=== PATIENT | female | born 1980 | race Caucasian/White ===

== ENCOUNTER 2017-03-20 05:32 | Inpatient (IN) | payer OTHER ==
--- NOTE | 2017-03-19 18:40 | GHP ---
[f rep st] PREOP HISTORY AND PHYSICAL DATE OF ADMISSION: 03/20/2017 She is scheduled for surgery tomorrow, 03/20/2017 at 7:30 a.m. SURGERY TO BE PERFORMED: Repeat lower transverse section. HISTORY OF PRESENT ILLNESS: The patient is a 36-year-old 3, para 1-0-1-1 with a last menstru al period of 06/10/2016, EDC of 03/17/2017, consistent with a 6 week ultrasound. She has had good pr enatal care at [facility] since registration at 6 weeks gestation, and she has progressed t o 40 and 3/7 weeks gestation. She had a history of a with her first baby secondary to radha ch presentation, failed external cephalic version, and she presented in labor with spontaneous ruptur e of membranes. That was an uncomplicated surgery. She wished to attempt to have a vaginal af ter section with this baby, and has hoped to go into spontaneous labor. However, she has no t shown any signs of labor as yet, and her cervix currently is closed, and high, and posterior. She has not had any regular contractions. We discussed the pros and cons of waiting a little while longe r to see if she would go into labor on her own. We will not offer an induction of labor because of t he increased risk of uterine rupture, and she is in agreement with this. So, she has decided to proc eed with the tomorrow. She has had an uncomplicated course, except for history of . She has a history of GBS bacteriuria. She had borderline growth initially with this bab y. Estimated weight was 19th percentile at 20 weeks. Followup ultrasound showed good growth. Most recently, baby was in the 44th percentile at 28 weeks, and has had good fundal height and олег l growth since then. No other risk factors. Normal labs in this , and she h as progressed to 40 weeks. PAST OB HISTORY: In 05/2014, she had a missed and a D and C. In 07/2015, she had the C-sec tion as previously described. This is her third . PAST GYNECOLOGICAL HISTORY: She has a normal menses with menarche at age 13, interval every 25-30 da ys, length of 3-4 days. She was having irregular cycles when she conceived this baby because she was still breast-feeding her older baby. Her LMP was 06/10/2016. She has one history of an abnormal Pa p, had a colpo which was normal. History of a and D and C. no other gynecological problem s. PAST MEDICAL HISTORY: No other significant past medical history. PAST SURGICAL HISTORY: She had an ACL repair x2, primary , wisdom teeth, and D and C. ALLERGIES: She has no known drug allergies. MEDICATIONS: vitamins, DHEA and Bifera. LABS: She is A positive, antibody negative, RPR nonreactive, rubella immune. Hepatitis negative. H IV negative. Cystic fibrosis, SMA, fragile X negative apart. Parvo was immune. Pap normal. Gonorr hea and chlamydia normal. Urine was positive for GBS. Verifi was normal. 1-hour GTT 109. Normal l ab. SOCIAL HISTORY: She is . She lives with her , Tor, and her son. She works in rehab . Denies tobacco, alcohol, and drug use. FAMILY HISTORY: Maternal grandparents had cardiac disease. OBJECTIVE: VITAL SIGNS: Today she is afebrile. Blood pressure is 106/68, weight is 159. She is up 35 pounds in this . GENERAL: She is a well-developed gravid white female, in no acute dis tress. LUNGS: Clear to auscultation bilaterally. HEART: Regular rate and rhythm. No murmur. ABD OMEN: Soft, nontender, nondistended. Normal bowel sounds. Gravid. Fundal height is 40. hea rt tones are 140s. PELVIC EXAM: Fingertip, high, posterior. ASSESSMENT AND PLAN: A 36-year-old 3, para 1-0-1-1 at 40 and 3/7 weeks gestation for a repea t lower transverse section. The patient was consented for the procedure today. She underst ood the risks and benefits. The risks including bleeding, infection, damage to internal organs, uter us, tubes, ovaries, bowel, bladder, nerves, blood vessels, ureters, risk of injury, risk of hem orrhage requiring blood transfusion, hysterectomy, or . She understood these risks and benefits , agreed to proceed. /[id number]/[facility]
[2017-03-20] MEDS ORDERED: CITRIC ACID/SODIUM CITRATE 30 ML UDCUP PO ONE (05:41)
[2017-03-20] MEDS ORDERED: LR 500 ML IV ONE (05:41)
[2017-03-20] MEDS ORDERED: ceFAZolin 2 GM/DEXTROSE 100 ML IV ONE (05:41)
[2017-03-20] MEDS ORDERED: LR 1,000 ML IV SCH (06:00)
[2017-03-20] MEDS ORDERED: MISOPROSTOL 200 MCG TAB ONE (06:35)
[2017-03-20] MEDS ORDERED: AMMONIA AROMATIC 1 EACH AMP IH ONE (06:35)
[2017-03-20] MEDS ORDERED: TERBUTALINE SULFATE 1 MG/ML VIAL ONE (06:35)
[2017-03-20] MEDS ORDERED: OXYTOCIN 10 UNIT/ML VIAL ONE (06:35)
[2017-03-20 06:37] LABS: % IMMATURE GRANULYOCYTES 0.6 % (0.0-1.1); ABSOLUTE IMMATURE GRANULOCYTES 0.06 10^3/uL (0.00-0.10); ADD DIFF? NO; ADD MORPH? NO; ADD SCAN? NO; ATYPICAL LYMPHOCYTE FLAG 0 (0-99); FRAGMENT RBC FLAG 0 (0-99); HEMATOCRIT 38.2 % (38.0-47.0); HEMOGLOBIN 13.5 g/dL (12.6-16.3); LEFT SHIFT FLG 0 (0-99); LIPEMIA HEMOLYSIS FLAG 90 (0-99); MEAN CELL HEMOGLOBIN 32.1 pg (27.9-34.1); MEAN CELL HEMOGLOBIN CONCENTR. 35.3 g/dL (32.4-36.7); MEAN CELL VOLUME 90.7 fL (81.5-99.8); MEAN PLATELET VOLUME 12.6 fL (8.7-11.7); PLATELET CLUMPS FLAG 0 (0-99); PLATELET COUNT 167 10^3/uL (150-400); RED BLOOD CELL COUNT 4.21 10^6/uL (4.18-5.33); RED CELL DISTRIBUTION WIDTH 13.2 % (11.5-15.2)
[2017-03-20] MEDS ORDERED: OXYCODONE/APAP 5/325 TAB PO PRN (07:29)
[2017-03-20] MEDS ORDERED: PHENYLEPHRINE HCL 100 MCG/ML SYR IVP PRN (07:29)
[2017-03-20] MEDS ORDERED: ONDANSETRON 4 MG/2 ML VIAL IVP PRN (07:29)
[2017-03-20] MEDS ORDERED: fentaNYL 100 MCG/2 ML INJ IVP PRN (07:29)
--- NOTE | 2017-03-20 07:29 | PREANESOB ---
Obstetric Pre-Anesthesia Info - General Info Proposed Procedure: repeat section : 3 Para: 1 KUSH: 03/17/17 Gestational Age: 40 week(s) and 3 day(s) - Info Status: Full Term - Labor Status Cervical Dilation per last OB SVE: 0 Section History: Repeat Indications for Current Section: Elective/Repeat Labor Epidural: No Anesthesia Allergies/Adverse Reactions: Allergy/AdvReac Type Severity Reaction Status Date / Time No Known Allergies Allergy Unverified 06/15/14 06:26 Home Medications: Medication Instructions Recorded 06/15/14 Docusate Sodium [Colace 100 MG (*)] 100 mg PO BID PRN #0 cap 07/17/15 Ferrous Sulfate [Ferrous Sulf 325 325 mg PO BID #0 tab 07/17/15 MG (*)] Hydrocodone/APAP 5/325 [[place] 1 - 2 tab PO Q4 PRN #30 tab 07/17/15 5/325 (*)] Ibuprofen [Motrin (*)] 600 mg PO Q6 PRN #0 tab 07/17/15 Visit Medications: Generic Name Dose Route Start Last Admin Trade Name Freq PRN Reason Stop Dose Admin Lactated Ringer's 1,000 mls @ 125 mls/hr 03/20/17 06:00 Lr IV 09/16/17 05:59 CONT DENZEL Discontinued Medications Generic Name Dose Route Start Last Admin Trade Name Freq PRN Reason Stop Dose Admin Ammonia (Aromatic Spirit) Confirm 03/20/17 06:35 Ammonia Aromatic Administered 03/20/17 06:36 Dose 1 each IH .STK-MED ONE Citric Acid/Sodium Citrate 30 ml 03/20/17 05:41 Bicitra PO 03/20/17 05:42 ONCALL ONE Ephedrine Sulfate Confirm 03/20/17 06:35 Ephedrine Sulfate Administered 03/20/17 06:36 Dose 50 mg .ROUTE .STK-MED ONE Cefazolin Sodium/Dextrose 100 mls @ 200 mls/hr 03/20/17 05:41 Ancef 2 Gm (Premix) IV 03/20/17 06:10 ONCALL ONE Protocol Lactated Ringer's 500 mls @ 0 mls/hr 03/20/17 05:41 03/20/17 06:12 Lr IV 03/20/17 05:42 500 mls ONCE ONE Administration As Directed Misoprostol Confirm 03/20/17 06:35 Cytotec Administered 03/20/17 06:36 Dose 1,000 mcg .ROUTE .STK-MED ONE Oxytocin Confirm 03/20/17 06:35 Pitocin Administered 03/20/17 06:36 Dose 30 unit .ROUTE .STK-MED ONE Terbutaline Sulfate Confirm 03/20/17 06:35 Brethine Administered 03/20/17 06:36 Dose 1 mg .ROUTE .STK-MED ONE - Anesthesia History Response to Local Anesthetics: Normal - Vital Signs Height/Weight (Nursing): Height 172.72 cm Weight 71.668 kg - Focused Exam Neck exam: FROM Mallampati Score: Class 1 Mouth exam: normal dental/mouth exam Pulmonary: no respiratory distress Cardiovascular: regular rate and rhythym Labs: 03/20/17 06:15 Patient ABO/Rh A POSITIVE 03/20/17 06:15 - Plan Anesthetic Plan: spinal anesthesia Consent Signed and on Chart: Yes
[2017-03-20] MEDS ORDERED: fentaNYL 100 MCG/2 ML INJ ONE (07:33)
[2017-03-20] MEDS ORDERED: morphINE PF 5 MG/10 ML INJ ONE (07:33)
[2017-03-20] MEDS ORDERED: ONDANSETRON 4 MG/2 ML VIAL ONE (07:43)
[2017-03-20] MEDS ORDERED: OXYTOCIN 100 UNITS/10 ML VIAL ONE (08:32)
[2017-03-20] MEDS ORDERED: PHENYLEPHRINE HCL 100 MCG/ML SYR ONE (08:46)
[2017-03-20] MEDS ORDERED: ACETAMINOPHEN 325 MG TAB PO PRN (09:25)
[2017-03-20] MEDS ORDERED: PROMETHAZINE HCL 25 MG/ML INJ IVP PRN (09:25)
[2017-03-20] MEDS ORDERED: SIMETHICONE 80 MG TAB CHEW PO PRN (09:25)
--- NOTE | 2017-03-20 09:27 | POSTANESTH ---
Post Anesthetic Evaluation Cardiovascular Status: Normal, Stable Respiratory Status: Normal, Stable Level of Consciousness/Mental Status: Can Participate in Eval Pain Control: Adequate, Prn Tx Ordered Nausea/Vomiting Control: Adequate, Prn Tx Ordered Complications Possibly Related to Anesthesia: None Noted
--- NOTE | 2017-03-20 09:33 | OBDEL ---
Info Type: Repeat Presentation at Delivery: Vertex L&D Analgesia/Anesthesia Type: Spinal GBS+: Yes Intrapartum Medications: Discontinued Medications Generic Name Dose Route Start Last Admin Trade Name Meliza PRN Reason Stop Dose Admin Citric Acid/Sodium Citrate 30 ml 03/20/17 05:41 03/20/17 07:29 Bicitra PO 03/20/17 05:42 30 ml ONCALL ONE Administration Cefazolin Sodium/Dextrose 100 mls @ 200 mls/hr 03/20/17 05:41 03/20/17 07:29 Ancef 2 Gm (Premix) IV 03/20/17 06:10 100 mls ONCALL ONE Administration Protocol Lactated Ringer's 500 mls @ 0 mls/hr 03/20/17 05:41 03/20/17 06:12 Lr IV 03/20/17 05:42 500 mls ONCE ONE Administration As Directed - Infant Care Provider Stone Finisher/MIXED ANIMAL VETERINARIAN: Doris Hollingsworth Indications for Delivery: Elective Operative Report - Delivery Pre-op Diagnoses: IUP @ 40 3/7 weeks, h/o c section desires repeat Post-op Diagnoses: same History of Prior Section: Yes Number of Prior Sections: 1 Nulliparous Prior to Delivery: No Indications for Prior Section: Breech (with SROM) Indications for Current Section: Elective/Repeat Procedure: Scheduled Surgeon: Laura Crain Correction Worker: Maggy Rojo Anesthesiologist: Graham Kulkarni Complications: None Findings: normal uterus, tubes and ovaries IV Fluid (ml): 1,800 EBL: 800 [place] Data Alexandre Delivery Date: 03/20/17 Delivery Time: 08:33 KUHS: 03/17/17 Gestational Age: 40 week(s) and 3 day(s) Sex of : Female [place] Weight (gm): 3748 g Score (1 Min): 8 Score (5 Min): 9 ICD10 Worksheet Patient Problems: Problems Problem Status Onset Status post repeat low transverse section Acute Delivery by section for breech presentation Acute - ICD10 Problem Qualifiers (1) Status post repeat low transverse section
--- NOTE | 2017-03-20 09:47 | GOP ---
[f rep st] OPERATIVE REPORT DATE OF OPERATION: 03/20/2017 SURGEON: Laura Crain MD WEB DESIGNER: Ana Luisa Rojo, certified nurse [employer] of [employer]. ANESTHESIA: Spinal anesthesia. ANESTHESIOLOGIST: Graham Kulkarni MD. PREOPERATIVE DIAGNOSIS: POSTOPERATIVE DIAGNOSIS: PROCEDURE PERFORMED: Repeat lower transverse section. FINDINGS: Viable female. Apgars of 8 and 9. Weight of 3748 g. ESTIMATED BLOOD LOSS: 800 cc. INDICATIONS: The patient is a 36-year-old, 3, para 1-0-1-1 with a last menstrual period of 1 , and an EDC of 03/17/2017, consistent with a 6 week ultrasound. She has had good care at [facility] since registration at 6 weeks gestation. She has progressed to 40 and 3 /7 weeks gestation. She had a history of with G1 secondary to breech presentation and spon taneous rupture of membranes. The patient had initially hoped to have a vaginal after section. However, she has progressed to 40 and 3/7 weeks gestation without any signs of active labo r. Her most recent cervical check was fingertip high and posterior. The patient decided she wanted to proceed with delivery at this point, and was consented for a . She understood the risks and benefits. The risks including bleeding, infection, damage to internal organs, uterus, tubes, ova dandre, bowel, bladder, nerves, blood vessels, ureters, risk of injury, risk of hemorrhage requir ing blood transfusion, hysterectomy, or . She understood these risks and benefits agreed to pro ceed. DESCRIPTION OF PROCEDURE: Patient was taken to the operating room where she was placed under spinal anesthesia without difficulty. She was prepped and draped in the dorsal supine position with a leftw kayden tilt, and a Christopher catheter was placed in her bladder. After adequate anesthesia was assured, a t ransverse skin incision was made with a scalpel, and the incision was carried down to the underlying layer of fascia with the Bovie. The fascia was incised in the midline. Fascial incision was extende d laterally with Echeverria scissors. Superior aspect of the fascial incision was grasped with Skye clam ps, elevated, and the rectus muscles were dissected off sharply. Inferior aspect of the fascial inci karley was grasped with Skye clamps, elevated, and the rectus muscles were dissected off sharply. Re ctus muscles were in the midline. Peritoneum was entered sharply. Peritoneal incision was extended superiorly and inferiorly with good visualization of bladder. Bladder blade was inserted. The vesicouterine peritoneum was grasped with pickups and entered sharply with Metzenbaum scissors. The incision was extended laterally, and bladder flap was created digitally. Bladder blade was inse rted and the uterus was incised with a knife. The incision was extended laterally with banded scisso rs. There was clear amniotic fluid upon entry of the uterine cavity. The was delivered atrau matically. We waited 1 minute for delayed cord clamping. The cord was then clamped and cut. The in royal was handed off to the waiting nurse practitioners. Cord bloods were sent. The placent a was removed manually. The uterus was exteriorized, cleared of all clots and debris. The uterine i ncision was repaired with 0 Vicryl in a running locked fashion. There was an area of bleeding along the left uterine artery and that was repaired with uterine artery ligation, and a second imbricating suture was performed with 0 Vicryl and good hemostasis was assured. The uterus was returned to the a bdomen. Gutters were cleared of all clots and debris. Reinspection of the uterine incision again as sured hemostasis. The rectus muscles were approximated with 2-0 Vicryl in inverted mattress fashion. The fascia was closed with #1 Vicryl in a running fashion. The subcutaneous layer was closed with 2-0 Vicryl and the skin was closed with 4-0 Vicryl. The patient tolerated the procedure well. Spong e, lap, needle, and instrument counts were correct x3. The patient went to the recovery room in good condition. ADMITTING DIAGNOSIS: Intrauterine at 40 and 3/7 weeks gestation for a repeat lower transve rse section. FLUID REPLACEMENT: 1800. URINE OUTPUT: 100. /[id number]/[facility]
[2017-03-20] MEDS: KETOROLAC 30 MG/1 ML SDV IVP PRN ×2 (10:45→17:54)
[2017-03-20] MEDS ORDERED: KETOROLAC 30 MG/1 ML SDV ONE (10:45)
[2017-03-21] MEDS: KETOROLAC 30 MG/1 ML SDV IVP PRN ×2 (00:14→06:21)
[2017-03-21] MEDS: HYDROCODONE/APAP 5/325 TAB PO PRN ×3 (12:40→20:43)
[2017-03-21] MEDS: IBUPROFEN 600 MG TAB PO PRN ×2 (12:41→18:52)
--- NOTE | 2017-03-21 13:39 | OBPP ---
Progress Note Assessment/Plan: Assessment: [id number] POD#1 s/p repeat c/s Plan: routine post op care ambulate cont plan for d/c home tomorrow with 03/21/17 13:33 Subjective/ Course: 03/21/17 13:39 pt doing well, reports min pain. She denies any heavy bleeding. She is ambulating without difficulty.she is . Objective: 03/21/17 00:30 Patient ABO/Rh A POSITIVE 03/20/17 06:15 Temp Pulse Resp BP Pulse Ox 36.2 C 63 18 92/58 L 99 03/21/17 04:10 03/21/17 04:10 03/21/17 06:30 03/21/17 04:10 03/21/17 06:30 Exam: constitutional: A&Ox3, WNWF HEENT: normocephalic, atraumatic Heart: RRR, no murmur Chest: CTA-B Abd: soft, nontender incision: C/D/I, steri-strips uterus: firm @U-1 extremities: WNL, neg endy's sign neuro: grossly normal Uterine Position/Fundal Height: Umbilicus -1, Midline Uterine Tone: Firm Physical Exam - Physical Exam EENT: PERRL/EOMI, normal ENT inspection Neck: non-tender, supple Respiratory: chest non-tender, lungs clear, normal breath sounds Cardiac/Chest: regular rate, rhythm Abdomen: non-tender, soft Extremities: non-tender Skin: normal color, warm/dry Neuro/Psych: no motor/sensory deficits, normal mood/affect, oriented x 3
[2017-03-21] MEDS: DOCUSATE SODIUM 100 MG CAP PO PRN (20:00)
[2017-03-22] MEDS: IBUPROFEN 600 MG TAB PO PRN ×2 (01:07→07:43)
[2017-03-22] MEDS: DOCUSATE SODIUM 100 MG CAP PO PRN (07:51)
[2017-03-22] MEDS: HYDROCODONE/APAP 5/325 TAB PO PRN (07:51)
--- NOTE | 2017-03-22 08:47 | OBPP ---
Progress Note Assessment/Plan: Assessment:nipples intact well pain well managed incision well approximated ss in place ff@u scant rubra lochia voiding without difficulty passing gas Plan:discharge to home with instructions 03/22/17 08:45 Subjective/ Course: S/P repeat cs doing well pain well managed, n ss of infection, incision well approximated, well. 03/21/17 13:39 pt doing well, reports min pain. She denies any heavy bleeding. She is ambulating without difficulty.she is . 03/22/17 08:44 Doing well desires dischagre to home. Denies pain. well Objective: 03/21/17 00:30 Patient ABO/Rh A POSITIVE 03/20/17 06:15 Temp Pulse Resp BP Pulse Ox 36.2 C 74 16 114/73 98 03/21/17 20:00 03/21/17 20:00 03/21/17 20:00 03/21/17 20:00 03/21/17 20:00 Uterine Position/Fundal Height: At Umbilicus Uterine Tone: Firm Physical Exam - Physical Exam General Appearance: WD/WN, alert, no apparent distress Respiratory: chest non-tender, lungs clear, normal breath sounds Cardiac/Chest: regular rate, rhythm Abdomen: normal bowel sounds, incision (well approximated ss in place no ss of infection) Extremities: normal range of motion, Sukumar's sign (negative bilaterally) DTR- Lower Extremities: Knee (R): 1+ (no clonus), Knee (L): 1+ Skin: normal color, warm/dry Neuro/Psych: no motor/sensory deficits, alert, normal mood/affect, oriented x 3
--- NOTE | 2017-03-22 08:49 | OBGCSDC ---
General Delivery Information - General Info : 3 Para: 2 Abortions: 1 Type: Repeat L&D Analgesia/Anesthesia Type: Spinal Admission Date: 03/20/17 Labs: Patient ABO/Rh A POSITIVE 03/20/17 06:15 Hct 27.7 % (38.0-47.0) L D 03/21/17 00:30 - Hospital Course Antepartum: repeat section 40.3/7 weeks, cervix long thick and closed decided against proceeded to section. No difficutys with the 03/22/17 08:47 : S/P repeat cs doing well pain well managed, n ss of infection, incision well approximated, well. 03/21/17 13:39 pt doing well, reports min pain. She denies any heavy bleeding. She is ambulating without difficulty.she is . 03/22/17 08:44 Doing well desires dischagre to home. Denies pain. well - Delivery Providers Surgeon: Laura Crain Roller Coaster Designer: Maggy Rojo Anesthesiologist: Graham Kulkarni - Delivery Number of Prior Sections: 1 Indications for Current Section: Elective/Repeat Surgical Procedures: Scheduled Intra-op Complications: None EBL: 800 Data Alexandre Delivery Date: 03/20/17 Delivery Time: 08:33 KUSH: 03/17/17 Gestational Age: 40 week(s) and 5 day(s) Sex of Infant: Female Weight (gm): 3748 g Score (1 Min): 8 Score (5 Min): 9
[2017-03-22] MEDS ORDERED: IRON POLYSAC/IRON HEME 28 MG TAB PO SCH (09:00)
[2017-03-22 10:33] VITALS: BP 111/72; PULSE 72; RESP 18; TEMP 98; O2SAT 100
== END 2017-03-22 11:45 | disposition home or self-care (01) | DRG 766 ==
LOC: FLD 05:32 → FOB 11:52
PROVIDERS: ADMIT Obstetrics & Gynecology; ATTEND Obstetrics & Gynecology
PROC: 10D00Z1 Extraction of Products of Conception, Low, Open Approach (ICD-10-PCS; principal; 2017-03-20)
DX: O34.211 Maternal care for low transverse scar from previous cesarean delivery (principal); O48.0 Post-term pregnancy; O99.820 Streptococcus B carrier state complicating pregnancy; Z3A.40 40 weeks gestation of pregnancy; Z37.0 Single live birth
CPT/HCPCS: J0690; J1885; J2274; J2370; J2405; J2550; J2590; J3010; J3105